=== PATIENT | female | born 1970 | race Caucasian/White ===

== ENCOUNTER 2023-04-09 10:52 | Emergency (ER) | payer SELFPAY ==
[~2023-04-09] VITALS: Ht 157.5 cm; Wt 54.4 kg
[2023-04-09 11:03] VITALS: BP_SYST 161; PULSE 80; RESP 18; TEMP 98.3; O2SAT 98
[2023-04-09] MEDS ORDERED: KETOROLAC TROMETHAMINE 30 MG VIAL IVP ONE (11:30)
[2023-04-09] MEDS ORDERED: CLON1TAB12 PO (12:16)
[2023-04-09] MEDS ORDERED: PRED50TA PO (12:16)
[2023-04-09] MEDS ORDERED: NAPR-688 PO (12:16)
[2023-04-09 12:25] VITALS: BP_SYST 161; PULSE 80; RESP 18; TEMP 98.3; O2SAT 98
== END 2023-04-09 12:24 | disposition home or self-care (01) ==
LOC: SED 10:52
DX: S33.5XXA Sprain of ligaments of lumbar spine, initial encounter (principal); I10 Essential (primary) hypertension; Z79.899 Other long term (current) drug therapy; X50.0XXA Overexertion from strenuous movement or load, initial encounter; Y93.89 Activity, other specified; Y92.89 Other specified places as the place of occurrence of the external cause; Y99.8 Other external cause status
CPT/HCPCS: 99283; 96374; 72100; J1885